=== PATIENT | male | born 1975 | race Caucasian/White ===

== ENCOUNTER 2018-12-03 08:18 | Emergency (ER) | payer OTHER ==
[~2018-12-03] VITALS: Ht 190.5 cm; Wt 147.7 kg
[2018-12-03 08:24] VITALS: BP 181/118
[2018-12-03] MEDS ORDERED: ketorolac tromethamine 15mg/ml inj. IM ONE (08:45)
[2018-12-03] MEDS ORDERED: triamcinolone acetonide 40mg/ml inj IM ONE (08:45)
[2018-12-03] MEDS ORDERED: HYDROcodone/acetaminophen 10/325mg tab PO ONE (08:45)
[2018-12-03] MEDS ORDERED: METH4TAB3 PO (09:15)
[2018-12-03] MEDS ORDERED: NAPR-56 PO (09:15)
[2018-12-03] MEDS ORDERED: HYDR-4353 PO (09:15)
== END 2018-12-03 09:29 | disposition home or self-care (01) ==
LOC: ER 08:18
DX: M54.5 Low back pain (principal); I10 Essential (primary) hypertension; E11.9 Type 2 diabetes mellitus without complications
CPT/HCPCS: 72100; 96372; 99283; J1885; J3301

== ENCOUNTER → 2018-12-08 | Outpatient (CLI) | payer OTHER ==
[~2018-12-08] MED LIST: HYDR-4353 PO; METH4TAB3 PO; NAPR-56 PO
== END | disposition home or self-care (01) ==
LOC: RAD 10:41
PROVIDERS: ATTEND General Practice
DX: M51.26 Other intervertebral disc displacement, lumbar region (principal); M48.061 Spinal stenosis, lumbar region without neurogenic claudication
CPT/HCPCS: 72148

== ENCOUNTER 2020-06-02 13:18 | Emergency (ER) | payer BC, OTHER ==
[~2020-06-02] VITALS: Ht 190.5 cm; Wt 140.0 kg
[~2020-06-02 13:18] MED LIST changes: -HYDR-4353 PO; -NAPR-56 PO
[2020-06-02 13:41] VITALS: BP 168/111
== END 2020-06-02 14:00 | disposition home or self-care (01) ==
LOC: ER 13:19
DX: J06.9 Acute upper respiratory infection, unspecified (principal); I10 Essential (primary) hypertension; E11.9 Type 2 diabetes mellitus without complications; Z20.828 Contact with and (suspected) exposure to other viral communicable diseases; Z72.89 Other problems related to lifestyle; Z79.899 Other long term (current) drug therapy
CPT/HCPCS: 99282

== ENCOUNTER 2020-08-12 14:16 | Emergency (ER) | payer BC ==
[~2020-08-12] VITALS: Ht 188 cm; Wt 150.0 kg
[~2020-08-12 14:16] MED LIST changes: +LIDOcaine 1% w/epiNEPHrine 1:200,000 30ml vial ONE
[2020-08-12] MEDS ORDERED: tranexamic acid 100mg/ml inj. TP ONE (15:20)
[2020-08-12] MEDS ORDERED: oxymetazoline 15 ML nasal spray NS ONE (15:20)
[2020-08-12] MEDS ORDERED: ondansetron/PF 4mg/2ml inj IV ONE ×2 (15:35)
--- NOTE | 2020-08-12 16:10 | NUR ---
DR DOS SANTOS AWARE OF PT BP STATED THAT HE WILL ORDER HYDRALAZINE FOR BP ,TRANSXEMIC ACID FOR IV AND 1L BOLUS IV.
--- NOTE | 2020-08-12 16:22 | NUR ---
PT RECIEVED AFRIN SPRAY AND TRANSXEMIC ACID BY DR DOS SANTOS .
[2020-08-12] MEDS ORDERED: tranexamic acid 100mg/ml inj. IV ONE (16:40)
[2020-08-12] MEDS ORDERED: LIDOcaine Viscous 15ml cup MM PRN (16:40)
[2020-08-12] MEDS ORDERED: normal saline 1000ml 1,000 ML IV ONE (16:40)
[2020-08-12] MEDS ORDERED: hydrALAZINE 20mg/ml inj. IV ONE (16:40)
[2020-08-12] MEDS ORDERED: TRANEXAMIC ACID 1 GM IN NACL,ISO-OS 100 ML IV ONE (16:45)
[2020-08-12] MEDS ORDERED: HYDROcodone/acetaminophen 5mg/325mg tablet PO ONE ×2 (17:25→18:00)
[2020-08-12] MEDS ORDERED: OXYM30SP26 BOTHNARES (18:23)
[2020-08-12] MEDS ORDERED: HYDR-3965 PO (18:23)
[2020-08-12 18:50] VITALS: BP 157/102
== END 2020-08-12 18:53 | disposition home or self-care (01) ==
LOC: ER 14:17
DX: S02.2XXA Fracture of nasal bones, initial encounter for closed fracture (principal); S02.40DA Maxillary fracture, left side, initial encounter for closed fracture; I10 Essential (primary) hypertension; E11.9 Type 2 diabetes mellitus without complications; Z72.89 Other problems related to lifestyle; Y04.2XXA Assault by strike against or bumped into by another person, initial encounter; Y93.89 Activity, other specified; Y92.89 Other specified places as the place of occurrence of the external cause; Y99.8 Other external cause status
CPT/HCPCS: 70450; 70486; 96365; 96375; 99285; J0360; J2405; J7030

== ENCOUNTER 2021-04-03 09:40 | Outpatient (CLI) | payer BC ==
[~2021-04-03 09:40] MED LIST changes: -LIDOcaine 1% w/epiNEPHrine 1:200,000 30ml vial ONE; +OXYM30SP26 BOTHNARES
== END 2021-04-03 23:59 | disposition home or self-care (01) ==
LOC: RAD 09:40
PROVIDERS: ATTEND General Practice
DX: M51.36 Other intervertebral disc degeneration, lumbar region (principal); M47.816 Spondylosis without myelopathy or radiculopathy, lumbar region; M48.07 Spinal stenosis, lumbosacral region
CPT/HCPCS: 72148